=== PATIENT | male | born 1975 | race Caucasian/White ===

== ENCOUNTER 2016-09-27 16:53 | Emergency (ER) | payer BC ==
[~2016-09-27] VITALS: Ht 180.3 cm; Wt 65.0 kg
[2016-09-27 16:54] VITALS: BP 124/79; PULSE 86; RESP 20; TEMP 98; O2SAT 98
--- NOTE | 2016-09-27 17:07 | PD ---
Physical Exam Time Seen by Provider: 17:05 Narrative 41 y/o male here with R index finger pain for 2 days. Vital signs reviewed. Seen at triage desk. Awaiting bed placement. Data Data Last Documented VS Vital Signs Date Time Temp Pulse Resp B/P Pulse Ox O2 Delivery O2 Flow Rate FiO2 09/27/16 16:54 98.0 86 20 124/79 98 Room Air MDM Medical Record Reviewed: Yes Supervised Visit with REHANA: Ap Haas Sep 27, 2016 17:07
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
== END 2016-09-27 18:20 | disposition home or self-care (01) ==
LOC: NEPK 16:53
DX: S60.410A Abrasion of right index finger, initial encounter (principal); X58.XXXA Exposure to other specified factors, initial encounter
CPT/HCPCS: 99282